=== PATIENT | male | born 1990 | race Caucasian/White ===

== ENCOUNTER → 2018-08-09 09:30 | Outpatient (CLI) | payer BC, SELFPAY ==
[2018-08-13 18:59] LABS: H. pylori Breath Test Negative (Negative)
== END ==
PROVIDERS: PCP Nurse Practitioner Family; Visit Provider Nurse Practitioner Family
DX: K21.9 Gastro-esophageal reflux disease without esophagitis (principal)
CPT/HCPCS: 83013

== ENCOUNTER → 2019-12-22 07:44 | Outpatient (CLI) | payer BC, SELFPAY ==
--- NOTE | 2019-12-22 07:48 | US_ITS ---
PROCEDURE: US ABDOMEN COMPLETE CLINICAL INDICATION: ABNORMAL LIVER FUNCTION Elevated liver function test COMPARISON: No exams were available for comparison FINDINGS: PANCREAS: Poorly demonstrated. Pancreas may be better visualized with CT if clinically desired LIVER: Diffuse increase echogenicity of the liver consistent with fatty liver infiltration. RIGHT KIDNEY: Unremarkable. Normal size and echogenicity. No hydronephrosis LEFT KIDNEY: Unremarkable. Normal size and echogenicity. No hydronephrosis GALLBLADDER: No gallstones, gallbladder wall thickening, pericholecystic fluid, or biliary dilatation. AORTA: No evidence of aneurysmal dilatation. SPLEEN: Mild splenomegaly at 14 cm ASCITES: None demonstrated. IMPRESSION: Fatty liver with mild splenomegaly Dictated by: Ant Waters MD 12/22/2019 17:41 Electronically signed by Ant Waters MD in [place] 12/22/2019 17:41
[2019-12-22 11:31] LABS: Basophils # 0.1 K/mm3 (0-0.2); Basophils % 0.8 % (0.1-2.0); Eosinophils # 0.1 K/mm3 (0.0-0.4); Eosinophils % 1.8 % (0.1-12.0); Hematocrit 48.6 % (42.0-52.0); Hemoglobin 16.4 g/dL (14.1-18.0); Lymphocytes # 3.4 K/mm3 (0.7-4.5); Lymphocytes % 49.3 % (10-50); Mean Corpuscular HGB Conc 33.8 g/dL (31.8-35.4); Mean Corpuscular Hemoglobin 30.1 pg (27.0-31.2); Mean Corpuscular Volume 89.1 fl (80-94); Mean Platelet Volume 8.3 fl (7.4-10.4); Monocytes # 0.4 K/mm3 (0.1-1.0); Monocytes % 5.4 % (1.7-9.3); Neutrophils # 2.9 K/mm3 (1.8-7.8); Neutrophils % 42.6 % (37.0-80.0); Platelet Count 196 K/mm3 (142-424); Red Blood Count 5.45 M/mm3 (4.60-6.20); Red Cell Distribution Width 12.4 % (11.5-17.5); White Blood Count 6.9 K/mm3 (4.8-10.8)
[2019-12-22 11:47] LABS: INR 0.98 (0.9-1.1); Prothrombin Time 10.2 seconds (9.4-11.8)
[2019-12-22 21:36] LABS: Alanine Aminotransferase 116 U/L (12-78); Albumin Level 4.5 gm/dL (3.4-5.0); Albumin/Globulin Ratio 1.6 (1.1-1.8); Alkaline Phosphatase 73 U/L (46-116); Anion Gap 14.2 mEq/L (5-15); Aspartate Amino Transferase 47 U/L (15-37); Bilirubin,Total 0.4 mg/dL (0.2-1.0); Blood Urea Nitrogen 9 mg/dL (7-18); Calcium 9.4 mg/dL (8.5-10.1); Carbon Dioxide 29 mmol/L (21.0-32.0); Chloride 105 mmol/L (98-107); Creatinine,Serum 1.02 mg/dL (0.70-1.30); Estimated Glomerular Filt Rate 85 ml/min (>60); Ferritin 188 ng/mL (8-388); GFR (African American) 103 ML/MIN (>60); Globulin 2.8 gm/dl (1.3-3.2); Glucose 108 mg/dL (74-106); Potassium 4.2 mmoL/L (3.5-5.1); Sodium 144 mmol/L (136-145); Total Protein,Serum 7.3 gm/dL (6.4-8.2)
[2019-12-23 05:12] LABS: Hep A Ab, IgM Negative (Negative); Hepatitis B Core Antibody IgM Negative (Negative); Hepatitis B Surface Antigen Negative (Negative); Iron 107 ug/dL (38-169); UIBC 212 ug/dL (111-343)
[2019-12-23 05:33] LABS: Hepatitis C Antibody <0.1 s/co ratio (0.0-0.9); Iron Saturation 34 % (15-55)
[2019-12-23 08:54] LABS: Ceruloplasmin 24.3 mg/dL (16.0-31.0); Immunoglobulin A, Qn 129 mg/dL (90-386); Immunoglobulin G, Qn 1028 mg/dL (700-1600)
[2019-12-23 14:01] LABS: Immunoglobulin M, Qn 117 mg/dL (20-172)
[2019-12-23 15:28] LABS: Angiotensin Converting Enzyme 62 U/L (14-82)
[2019-12-24 11:58] LABS: Reticulin IgA Antibody Negative titer (Neg:<1:2.5)
[2019-12-25 08:21] LABS: ALT (SGPT) P5P 97 IU/L (0-55); AST (SGOT) P5P 52 IU/L (0-40); Alpha 2-Macroglobulins, Qn 100 mg/dL (110-276); Apolipoprotein A-1 116 mg/dL (101-178); Bilirubin, Total 0.4 mg/dL (0.0-1.2); Cholesterol, Total 170 mg/dL (100-199); Fibrosis Score 0.09 (0.00-0.21); GGT 63 IU/L (0-65); Glucose 111 mg/dL (65-99); Haptoglobin 83 mg/dL (17-317); Steatosis Score 0.81 (0.00-0.30); Triglycerides 154 mg/dL (0-149)
[2019-12-29 15:09] LABS: Alpha-1-Antitrypsin 112 mg/dL (95-164)
[2020-01-16 19:42] LABS: Antinuclear Antibodies (ANA) NEGATIVE; Deamidated Gliadin Abs, IgA 3
[2020-01-16 19:43] LABS: Actin (Smooth Muscle) Antibody 12; Deamidated Gliadin Abs, IgG 3; Mitochondrial (M2) Antibody <20.0
[2020-01-16 19:44] LABS: Liver-Kidney Microsomal Ab 2.1
[2020-01-16 19:45] LABS: Endomysial IgA Antibody NEGATIVE; Tissue Transglutaminase IgA Ab <2; Tissue Transglutaminase IgG Ab 4
== END ==
PROVIDERS: Nurse Practitioner Family; PCP Nurse Practitioner Family; Referring Provider Nurse Practitioner Family; Visit Provider Nurse Practitioner Family
DX: R94.5 Abnormal results of liver function studies (principal); R14.0 Abdominal distension (gaseous); R19.4 Change in bowel habit; K59.00 Constipation, unspecified; R19.7 Diarrhea, unspecified; R10.84 Generalized abdominal pain
CPT/HCPCS: 36415; 76700; 80053; 80074; 81256; 82103; 82104; 82164; 82390; 82728; 82784; 83516; 83540; 83550; 85025; 85610; 86038; 86255; 86256; 86376

== ENCOUNTER → 2019-12-22 09:00 | Outpatient (POV) | payer BC, SELFPAY | PROVIDERS: Visit Provider Nurse Practitioner Family | DX: Z00.00 Encounter for general adult medical examination without abnormal findings (principal) ==

== ENCOUNTER → 2020-03-30 16:24 | Outpatient (CLI) | payer BC, SELFPAY ==
--- NOTE | 2020-03-30 16:30 | XR_ITS ---
PROCEDURE: XR FOOT WT BEARING LT 3V CLINICAL INDICATION: PAIN COMPARISON: FTL3 FOOT-LT-3 VIEWS from 06/23/2015 XR FOOT RT MIN 3V from 07/16/2019 FINDINGS: No fracture or dislocation. No lytic or blastic change. There is normal mineralization. The joint spaces are well-preserved. No significant degenerative/arthritic changes. No erosive changes evident. Other findings:There is some artifact from an overlying wrap IMPRESSION: No acute findings. Dictated by: Ant Waters MD 03/30/2020 17:07 Electronically signed by Ant Waters MD in [place] 03/30/2020 17:07
== END ==
PROVIDERS: PCP Nurse Practitioner Family; Visit Provider Podiatrist
DX: M79.672 Pain in left foot (principal)
CPT/HCPCS: 73630

== ENCOUNTER 2020-05-25 17:00 | Outpatient (RCR) | payer BC, SELFPAY ==
--- NOTE | 2020-04-26 17:32 | [facility].PTOPEV ---
PT Outpatient Evaluation Rehab PT Outpatient Evaluation Start: 04/26/20 16:57 Freq: Status: Active Protocol: Document 04/26/20 16:57 DEANNA (Rec: 04/26/20 17:31 PDEJAMISON [id number]) Electronically Signed By Joshua Suarez, MARY JO 04/26/20 16:57 Outpatient Therapy Subjective History Subjective History Pt. is a 29 year old male who presents to outpatient PT clinic w/ complaints of subacute and intermittent L lateral ft. P! post gout flare-up on . Pt. reports I had a flare up of gout in my L ankle that triggered this tendinitis. Pt. reports minimal symptomatic P! at this time that worsens especially w/ stair descension and walking. Pt. reports symptom relief w/ ankle brace and ice. Recent diagnostic imaging negative for acute findings. Pt. denies having injections for current pathology. Pt. currently reports ambulation w/ WBAT in laced on ankle brace of the LLE ft./ankle, wean at PT discretion per pt. report. Pt. RTMD May 2020. Current medications include Allopurinol, Lansoprazole, anti-biotic, Vitamin E, and a Probiotic. PMH includes Gout, RLE calcaneal osteophyte, [place] Tooth Extraction, Tonsillectomy, and GERD. Chief Complaint Pain,Stiff,Weakness Symptom Type Ache Symptoms Relieved By Rest/Positioning,Ice,Brace/ Support Symptoms Aggravated By Standing,Physical Activity, Walking Prior Functional Limitations None Current Functional Limitations Housework,Standing,Squatting, Recreation Activity,Walking, Stairs Symptom Description Intermittent Level of pain today (0-10) 0 Pain scale - at its best (0-10) 0 Pain scale - at its worst (0-10) 6 Ankle/Foot Eval Gait Observation General Gait Pattern Observation Antalgic Gait,Decrease Weight Bear (L),Decrease Stride Lngth
== END 2020-06-08 14:00 | disposition home or self-care (01) ==
LOC: PT.CARL 17:00
PROVIDERS: PCP Nurse Practitioner Family; Visit Provider Podiatrist
DX: M76.72 Peroneal tendinitis, left leg (principal)
CPT/HCPCS: 97010; 97033; 97035; 97110; 97112; 97116; 97163